=== PATIENT | male | born 1960 | race Caucasian/White ===

== ENCOUNTER 2019-09-08 14:31 | Outpatient (CLI) | payer BC, SELFPAY ==
--- NOTE | ~2019-09-08 | CT_ITS ---
EXAMINATION: CT shoulder RT wo con DATE: 09/08/2019 14:56 INDICATION: Right shoulder osteoarthritis TECHNIQUE: High resolution computed tomography (CT) of the right shoulder was performed without intra venous contrast. Additional sagittal and coronal reconstructions were performed. Automated exposure c ontrol and iterative reconstruction technique were employed. The dose-length product was 535.70 mGy-c m. COMPARISON: Radiograph dated 08/31/2019 FINDINGS: Alignment is normal. No fracture. Moderate osteoarthritis at the right shoulder with posterior predom inant nonuniform joint space narrowing. Small to moderate size marginal osteophytes are present along the posterior rim of the glenoid. There are also small marginal osteophytes about the humeral head. 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 Moderate a cromioclavicular osteoarthritis. Soft tissues are unremarkable with no asymmetric muscular atrophy of the right shoulder girdle. Visualized portions of the right lung are clear. IMPRESSION: 1. Moderate acromioclavicular and glenohumeral osteoarthritis. Reviewed, dictated and finalized at location A.
== END 2019-09-08 14:32 | disposition home or self-care (01) ==
PROVIDERS: PCP Family Medicine; Visit Provider Orthopaedic Surgery
DX: M19.011 Primary osteoarthritis, right shoulder (principal)
CPT/HCPCS: 73200

== ENCOUNTER 2019-12-27 10:06 | Outpatient (CLI) | payer BC, SELFPAY ==
--- NOTE | 2019-12-27 10:54 | ECG_ITS ---
Measurements Intervals [place] Rate: 56 P: 52 NH: 168 QRS: 44 QRSD: 92 T: 46 QT: 385 QTc: 374 Interpretive Statements SINUS BRADYCARDIA BASELINE ARTIFACT- I, II, AVR BORDERLINE ECG Electronically Signed On 12-27-2019 11:15:19 CDT by Russell Peralta D.O.
[2019-12-27 11:20] LABS: Basophils Percent Auto 0.5 % (0.2-1.2); Eosinophils Percent Auto 0.9 % (0-4.4); Hematocrit 41.1 % (42.0-52.0); Hemoglobin 14.7 g/dL (14.0-18.0); Immature Granulocyte Absolute 0.01 K/mm3 (0.00-0.031); Immature Granulocyte Percent A 0.2 % (0-0.5); Lymphocytes Absolute Auto 0.96 K/mm3 (0.9-3.2); Lymphocytes Percent Auto 22.5 % (18.3-44.2); Mean Corpuscular HGB Conc 35.8 g/dl (32-36); Mean Corpuscular Hemoglobin 32.7 pg (26-34); Mean Corpuscular Volume 91.5 fl (80-100); Mean Platelet Volume 8.6 fl (7.4-10.4); Monocytes Absolute Auto 0.3 K/mm3 (0.1-0.6); Monocytes Percent Auto 6.8 % (2.6-8.5); Neutrophils Absolute Auto 2.9 K/mm3 (1.3-6.7); Neutrophils Percent Auto 69.1 % (45.5-73.1); Platelet Count Result 189 k/mm3 (150-375); Red Blood Count 4.49 M/mm3 (4.6-6.20); Red Cell Distribution Width 12.1 % (11.5-14.5); White Blood Count 4.3 K/mm3 (4.5-10.0)
== END 2019-12-27 10:07 | disposition home or self-care (01) ==
LOC: ANHSURGERY 10:09
PROVIDERS: PCP Family Medicine; Visit Provider Orthopaedic Surgery
DX: M19.011 Primary osteoarthritis, right shoulder (principal); I10 Essential (primary) hypertension; Z01.818 Encounter for other preprocedural examination; R94.31 Abnormal electrocardiogram [ECG] [EKG]
CPT/HCPCS: 36415; 85025; 87081; 93005

== ENCOUNTER 2020-01-21 01:39 | Outpatient (CLI) | payer BC, SELFPAY ==
[2020-01-21 22:13] LABS: SARS-CoV-2 RNA PCR Negative
== END 2020-01-21 01:40 | disposition home or self-care (01) ==
LOC: ANHCOVIDDT 01:39
PROVIDERS: PCP Family Medicine; Visit Provider Orthopaedic Surgery
DX: Z01.812 Encounter for preprocedural laboratory examination (principal); Z20.828 Contact with and (suspected) exposure to other viral communicable diseases
CPT/HCPCS: 87635; C9803; U0003

== ENCOUNTER 2020-01-24 13:19 | Inpatient (IN) | payer BC, SELFPAY ==
[2019-12-27 10:31] VITALS: BP 142/72; PULSE 72; RESP 20; TEMP 36.3; O2SAT 100; BMI 25.9
--- NOTE | 2020-01-23 14:12 | WPDANESEPPF ---
Anes - Initial Pre Proc Eval Procedure: Operation Date: 01/24/20 07:30 Proposed Procedures p Right Anatomic Total Shoulder Arthroplasty Versus Right Reverse Total Shoulder Arthroplasty - Adiel Urrutia MD Date/Time: 01/23/20 14:12 Surgeon: Adiel Urrutia MD Pre Op Diagnosis: Right Shoulder OA Patient Data Age: 59 Gender: M Height: 1.88 m Weight: 91.8 kg Last Vital Signs Temp 36.3 C L 12/27/19 10:31 Pulse 72 12/27/19 10:31 Resp 20 12/27/19 10:31 BP 142/72 H 12/27/19 10:31 Pulse Ox 100 12/27/19 10:31 Allergies Allergy/AdvReac Type Severity Reaction Status Date / Time No Known Allergies Allergy Verified 01/24/20 07:01 Home Medications Medication Instructions Recorded Confirmed Type aspirin 81 mg PO HS 01/07/19 01/24/20 History omega-3 fatty acids 1,000 mg 2,000 mg PO BID cap 04/07/19 01/24/20 History capsule ramipril 10 mg capsule 10 mg PO BID #180 cap 12/07/19 01/24/20 Rx ascorbic acid (vitamin C) [Vitamin 1 g PO DAILY 12/27/19 01/24/20 History C] cholecalciferol (vitamin D3) 50 mcg PO DAILY 12/27/19 01/24/20 History docusate sodium 250 mg PO BID 12/27/19 01/24/20 History gabapentin 300 mg PO HS 12/27/19 01/24/20 History metoprolol succinate 25 mg PO HS 12/27/19 01/24/20 History psyllium seed (sugar) [Metamucil 1 tbsp PO BID 12/27/19 01/24/20 History (sugar)] rosuvastatin [Crestor] 10 mg PO HS 12/27/19 01/24/20 History ECG: : 1960MR#: [id number] Age/Sex: 59 / MAcct:[id number] Loc: ANHSURGERY ADM Date: 12/27/[address]: Adiel Urrutia MD Ordering Physician: Ottoniel Pitts MD Date of Service: 12/27/19 Procedure(s): CA 12 lead EKG Accession Number(s): [id number] cc: ~ Measurements Intervals [place] Rate: 56 P: 52 ME: 168 QRS: 44 QRSD: 92 T: 46 QT: 385 QTc: 374 Interpretive Statements SINUS BRADYCARDIA BASELINE ARTIFACT- I, II, AVR BORDERLINE ECG Electronically Signed On 12-27-2019 11:15:19 CDT by Russell Peralta D.O. Dictated By: Russell Peralta DO 12/27/19 1134 Patient hx anesthesia problems: none Family hx anesthesia problems: none PMFSH Past Medical History Medical History (Updated 01/23/20 @ 14:13 by Dony Romeo MD) Benign essential hypertension FHx: heart disease Hereditary hemochromatosis Mixed hyperlipidemia JOSE A on CPAP Osteoarthritis of right shoulder Overweight (BMI 25.0-29.9) Surgical History Surgical History History of appendectomy Hx of lumbar discectomy L5-S1 Family History Family History Sibling Family history of heart disease in male family member before age 55 Cerebrovascular accident Family history of lung cancer Family history of malignant neoplasm of breast in first degree relative Diabetes mellitus Family history of cardiovascular disease Family history of Parkinson's disease, Onset Age: 71 Mother Diabetes mellitus Family history of chronic obstructive pulmonary disease Family history of congestive heart failure Social History Social History Smoking status: Never smoker Second hand tobacco smoke exposure: No Alcohol intake: current Substance use: never Substance use type: does not use Living arrangements: with family Gender identity (if verbalized by the patient): Male Spiritual care concerns: No Anes - Eval Final PreProcedure Day of Procedure 01/23/20 14:12 Patient weight: overweight Heart: regular rate and rhythm Lungs: clear to auscultation and normal air movement Airway: Mal
[2020-01-24] VITALS (15 sets, daily range): BP systolic 101–140; BP diastolic 58–79; PULSE 66–87; RESP 12–20; TEMP 36.1–36.9; O2SAT 94–100
--- NOTE | ~2020-01-24 | XR_ITS ---
EXAMINATION: XR shoulder RT min 2V DATE: 01/24/2020 11:50 INDICATION: Status post right total shoulder arthroplasty TECHNIQUE: AP and transscapular Y views of the right shoulder were obtained. COMPARISON: None FINDINGS: Reverse right total shoulder arthroplasty which appears well seated in near-anatomic alignment. No fr acture. Moderate acromioclavicular osteoarthritis. Expected small amount of postoperative gas in the soft tissues surrounding the arthroplasty. Mild streaky atelectasis at the right costophrenic angle. IMPRESSION: Expected appearance post reverse right total shoulder arthroplasty. Reviewed, dictated and finalized at location A. DROPPER
[2020-01-24] MEDS: ACETAMINOPHEN 500 MG TABLET 1000 MG PO (06:35)
[2020-01-24] MEDS: LACTATED RINGERS 1,000 ML 30 ML IV CONT ×2 (06:45→11:36)
[2020-01-24] MEDS: KETOROLAC 15 MG/ML VIAL (*BKC) IV PUSH (06:45)
[2020-01-24] MEDS: TRANEXAMIC ACID 1,000MG/ISO100 1,000 MG/100 ML BAG 200 MG IVPB (06:49)
--- NOTE | 2020-01-24 07:19 | WPDANESPNB ---
Anes - Peripheral Nerve Block Date/Time: 01/24/20 07:19 I have discussed with the patient/family/POA the placement of a peripheral nerve block for post-operative pain management, including associated risks, benefits, complications, and side effects. Alternative methods of post-operative analgesia were detailed. Questions were solicited and answers provided to the satisfaction of the patient/family/POA. Time-Out: A pre-procedural Time-Out was completed immediately before starting the procedure and confirmed: Patient Identification, Site, Procedure, Patient Position and the Availability of Requisite Equipment. Clinical Indications: Acute post-operative pain management requested by the operative surgeon. Nerve Block Insertion Note Anes-nerve block: supraclavicular right Patient position: supine Skin prep: chlorhexidine Needle: 22 gauge, stimulating, insulated echogenic needle. Needle length: 80 mm Technique: ultrasound (in plane) Injectate: bupivacaine 0.5% with epi 5 mcg/ml (20cc) Observations: tolerated well Complications: none Procedure start time:: 725 Procedure end time:: 730
--- NOTE | 2020-01-24 07:20 | WPDHPUPDATE1 ---
History and Physical Update Update Date/Time: 01/24/20 07:20 History and Physical has been reviewed, including an updated exam of the patient. There are NO changes in the patient's condition. Risks, benefits, and alternatives have been discussed and questions answered. Patient agrees to proceed with procedure.
[2020-01-24] MEDS: ceFAZolin 2 GM/D5W 50 ML 2 GM/50 ML BAG IVPB (07:40)
[2020-01-24] MEDS: VANCOMYCIN HCL 1,000 MG VIAL 1000 MG TOPICAL (11:00)
--- NOTE | 2020-01-24 11:18 | PM.PROC ---
Procedure Note - Detailed Date of procedure: 01/24/20 Pre-op diagnosis: Right Shoulder OA Post-op diagnosis: same Procedure performed: 1. Reverse total shoulder arthroplasty. 2. Biceps tenodesis. 3. Lesser tuberosity osteotomy and repair Implants: Man lopez/ Sawyer, corey + reversed base plate, 29mm. Perform reversed glenoid sphere, size 42 Flex shoulder system reverse tray low offset at 6 o'clock. 6 mm polyethylene reversed insert. Ascend flex standard humeral stem size 3B Anesthesia: GETA and regional Surgeon: Adiel Urrutia MD Estimated blood loss (mL): 300 Drains: No Pathology: none sent Complications: None Condition: stable Disposition: PACU Findings: OPERATIVE DETAILS: The patient was given an interscalene block in the preoperative area. Preoperative antibiotics were given. The patient was transferred to the operating room and a general anesthetic was administered. The beach chair position was used at 45 degrees. All bony prominences were padded. The head was carefully stabilized [facility] the [facility] and priming tool setter. A sterile prep and drape was performed in the usual manner with ChloraPrep. A longitudinal incision was created at the anterior shoulder just lateral to the deltopectoral interval. Careful dissection was performed to expose the interval and protect the cephalic vein. The vein was retracted medially. The upper border of the pectoralis was released. Anterior circumflex vessel branches were suture ligated. The biceps was tenodesed. A lesser tuberosity osteotomy was performed. A moderate-sized bone fragment was removed with the straight and curved osteotome. 5. Ethibond sutures were passed for later repair. The inferior capsule was released, exposing the humeral head. Osteophytes were removed. Care was taken to stay on bone to protect the axillary nerve. The anatomic head cut was taken with the oscillating saw. Sounding and broaching was performed. The neck anteversion and inclination were carefully assessed. The cut protector was placed, and attention was turned to the glenoid. Retractors were placed. Releases were carried out for exposure. The subscapularis was mobilized, the inferior capsule and long head of triceps released, and the superior and middle glenohumeral ligaments released as well. Labral tissue was resected as needed. It was clear at this point that the shoulder was exceptionally tight. The posterior capsule was excised. A guide pin was placed for a standard anatomic glenoid implant but further instrumentation was not possible. it was elected to move to the reverse implant. A few extra mm of humeral head cut were taken. The anterior supraspinatus was released. Glenoid exposure was significantly facilitated at this time. The guide pin for there reverse implant was placed low and anteversion was built in approximately 10?. Reaming was accomplished to a 90% coverage. The center screw and boss were reamed. Measurement for the 35 mm screw was confirmed. The real standard base plate was screwed into position with excellent compression. The superior and inferior locking screws were placed at 30 mm. The circumferential Reamer was used to confirm no impingement for the glenoid sphere. The glenoid sphere was placed using a bone hook to expose the center post hole. The center screw was taken down the confirm appropriate compression. Attention was turned to the humerus. Trialing was performed. Reduction at the 12 o'clock position was not possible. Reduction at the 6 o'clock position with the low offset base plate was nicely tensioned and stable. The real humeral stem and tray, and insert were impacted into position. The shoulder was copiously irrigated periodically with pulsatile lavage. The shoulder was reduced and stability confirmed. Repair of the lesser tuberosity osteotomy was performed. Three drill holes were placed and suture shuttling was performed for the 5. Ethibond. A 2. Tape suture was also brought around the p
[2020-01-24] MEDS: PSYLLIUM SUGAR FREE POWDER PACKET 1 PACKET PO (17:35)
[2020-01-24] MEDS: DOCUSATE SODIUM 100 MG CAPSULE PO (17:35)
[2020-01-24] MEDS: ramipriL 5 MG CAPSULE 10 MG PO (17:36)
[2020-01-24] MEDS: MELOXICAM 7.5 MG TABLET PO (17:36)
[2020-01-24] MEDS: ROSUVASTATIN 10 MG TABLET PO (21:23)
[2020-01-24] MEDS: METOPROLOL SUCCINATE EXT REL 25 MG TABCR PO (21:23)
[2020-01-24] MEDS: ASPIRIN 81 MG ENTERIC TABLET PO (21:23)
[2020-01-24] MEDS: GABAPENTIN 300 MG CAPSULE PO (21:23)
[2020-01-24] MEDS: SENNA/DOCUSATE SODIUM TABLET 1 TAB PO (21:23)
[2020-01-24] MEDS: oxyCODONE HCL (*CRX) 5 MG TAB IR PO (22:09)
[2020-01-25 02:00] VITALS: BP 110/64; PULSE 57; RESP 16; TEMP 36.6; O2SAT 98
[2020-01-25 06:00] VITALS: BP 116/72; PULSE 61; RESP 14; TEMP 36.7; O2SAT 100
--- NOTE | 2020-01-25 09:10 | WPDANESPN ---
Anes - Prog Note Post-Op Date/Time: 01/25/20 09:10 Cardiovascular status: normal Respiratory status: normal Airway patency: baseline Mental status: baseline Post-Op hydration status: normal Vital Signs: Last Vital Signs Temp 36.7 C 01/25/20 06:00 Pulse 61 01/25/20 06:00 Resp 14 01/25/20 06:00 BP 116/72 01/25/20 06:00 Pulse Ox 100 01/25/20 06:00 Pain Score (VAS): 2 I/O: Intake & Output 01/24/20 01/25/20 01/25/20 23:59 07:59 15:59 Intake Total 740 1100 240 Balance 740 1100 240 Post-procedural complaints: none Patient Feedback: Patient satisfied with anesthetic care.
[2020-01-25] MEDS: ramipriL 5 MG CAPSULE 10 MG PO (09:17)
[2020-01-25] MEDS: PSYLLIUM SUGAR FREE POWDER PACKET 1 PACKET PO (09:17)
[2020-01-25] MEDS: MELOXICAM 7.5 MG TABLET PO (09:18)
[2020-01-25] MEDS: CHOLECALCIFEROL 1,000 UNITS TABLET 2000 UNITS PO (09:18)
[2020-01-25] MEDS: ASCORBIC ACID 500 MG TABLET 1000 MG PO (09:19)
[2020-01-25] MEDS: DOCUSATE SODIUM 100 MG CAPSULE PO (09:19)
[2020-01-25] MEDS: oxyCODONE HCL (*CRX) 5 MG TAB IR PO (09:19)
[2020-01-25 09:55] VITALS: BP 130/73; PULSE 62; RESP 16; TEMP 36.7; O2SAT 99
--- NOTE | 2020-01-25 12:51 | PC.NURSE ---
On 01/25/20, the student, Loyd Hung, provided care and completed [facility] documentation on this patient. I have reviewed the student's documentation and agree with the findings.
[2020-01-25] MEDS: oxyCODONE HCL (*CRX) 5 MG TAB IR 10 MG PO (13:01)
--- NOTE | 2020-01-25 18:18 | PM.DS ---
DS: Admitting Diagnosis Admitting Diagnosis Admitting Diagnosis: Right Shoulder OA DS: Summary Hospital Course Reason for hospitalization: Total shoulder arthroplasty. Hospital Course: Tolerated surgery well. Progressed appropriately with therapy. Status at Discharge Functional status at discharge: independent ambulation Overall status at discharge: patient is progressing back to baseline Time Spent with Patient Time attestation: Total time spent providing and/or coordinating discharge services: Exam Const: General: no acute distress Resp: Effort & Inspection: normal respiratory effort Skin: Other: Wound healing well. Mepilex dressing intact. No hematoma or drainage. Sling applied appropriately. Deltoid muscle fires. Axillary nerve sensation intact. Good hospital receiving clerk strength. No edema. radial pulse palpable. Neuro: Motor exam (neuro): 5/5 motor strength present throughout Sensory Exam: normal sensation Psych: Mental Status: mental status grossly normal Speech and movement: Normal speech and movement present Discharge Plan Discharge Attending physician on discharge: Adiel Urrutia Discharging Clinician: Adiel Urrutia Patient Disposition: Home, Self-Care Activity: may shower Diet: as tolerated Wound Care Instructions: follow printed instructions Discharge Instructions: See instruction sheet. Patient Instructions: Antibiotic Form, Joint Replacement Surgery (DC), Shoulder Arthroplasty (DC), Pain Management After Surgery (DC), Shoulder Immobilizer (DC) Stand Alone Forms: General Discharge Information Follow-up/Referrals: Adiel Urrutia MD [Physician] - Discharge Medications: New oxycodone-acetaminophen 5-325 mg tablet 1 - 2 tablet PO Q4-6H MDD 8 tablets PRN (Reason: pain) Qty: 40 RF: 0 Continued aspirin 81 mg Tablet,Delayed Release (Dr/Ec) 81 mg PO HS RF: 0 omega-3 fatty acids [Fish Oil Concentrate] 1,000 mg capsule 2,000 mg PO BID RF: 0 ascorbic acid (vitamin C) [Vitamin C] 1,000 mg Tablet 1 g PO DAILY RF: 0 docusate sodium 250 mg Capsule 250 mg PO BID RF: 0 Metamucil (sugar) Powder 1 tbsp PO BID RF: 0 cholecalciferol (vitamin D3) 50 mcg (2,000 unit) Capsule 50 mcg PO DAILY RF: 0 gabapentin 300 mg capsule 300 mg PO HS RF: 0 metoprolol succinate 25 mg tablet extended release 24 hr 25 mg PO HS RF: 0 rosuvastatin [Crestor] 20 mg tablet 10 mg PO HS RF: 0 ramipril [Altace] 10 mg capsule 10 mg PO BID Qty: 180 RF: 2 Date of admission: 01/24/20 13:19 Primary Care Provider: Don Wolff Admitting Provider: Adiel Urrutia Attending physician on admission: Adiel Urrutia
== END 2020-01-25 14:06 | disposition home or self-care (01) | DRG 483 ==
LOC: ANH2MED 13:21
PROVIDERS: Admitting Provider Orthopaedic Surgery; PCP Family Medicine; Visit Provider Orthopaedic Surgery
PROC: 0RRJ00Z Replacement of Right Shoulder Joint with Reverse Ball and Socket Synthetic Substitute, Open Approach (ICD-10-PCS; CPT 23472; principal; 2020-01-24 07:30)
DX: M19.011 Primary osteoarthritis, right shoulder (principal); I10 Essential (primary) hypertension; G47.33 Obstructive sleep apnea (adult) (pediatric); E78.2 Mixed hyperlipidemia
CPT/HCPCS: 36415; 73030; 86850; 86900; 86901; 94660; 97110; 97161; 97165; A4565; A9270; C1776; J0131; J0171; J0330; J0461; J0690; J1100; J1170; J1885; J2250; J2270; J2370; J2405; J2704; J2795; J3010; J3370; J7120

== ENCOUNTER 2020-06-27 12:41 | Emergency (ER) | payer OTHER, BC, SELFPAY ==
[2020-06-27 13:01] VITALS: BP 162/68; PULSE 82; RESP 16; TEMP 36.2; O2SAT 98
--- NOTE | 2020-06-27 13:05 | ED.SKABFB ---
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 Patient states he was at work Thursday and scratched the extensor surface of his right hand. He complains of quickly developing redness-similar to prior cellulitis; he mentions he is also had a shoulder replacement on the same, right side . No fever, streaking like last time, discharge, abscess/induration; symptoms are mild worse with activity and do not involve the palmar/flexor hand. He reports immunizations are UTD Related Data Home Medications Medication Instructions Recorded Confirmed Unknown Htn/ Cholesterol Meds 06/27/20 Allergies Allergy/AdvReac Type Severity Reaction Status Date / Time No Known Allergies Allergy Verified 06/27/20 12:59 Review of Systems Review of Systems: Narrative: The patient has been informed that they may have pre-hypertension or Hypertension based on a BP reading in the department. I recommend that the patient call the primary care provider listed on their discharge instructions or a physician of their choice this week to arrange follow up for further evaluation of possible pre-hypertension or Hypertension General/Constitutional: No weight loss,fever Eyes: N0: Redness,discharge Ears/Nose/Throat: No: Epistaxis,ear discharge Respiratory: Denies: Hemoptysis Gastrointestinal: No Vomiting, Bleeding-rectal Skin: No Lumps, REPORTS eruption Neurologic: No Focal Weakness,Sz Hematologic: Denies: Petechiae/Purpura Psychiatric: No: Suicida ideationl All Other Systems: Reviewed and Negative [facility] Past Medical History Medical History Benign essential hypertension FHx: heart disease Hereditary hemochromatosis Mixed hyperlipidemia JOSE A on CPAP Osteoarthritis of right shoulder Overweight (BMI 25.0-29.9) Surgical History Surgical History History of appendectomy Hx of lumbar discectomy L5-S1 S/p reverse total shoulder arthroplasty Family History Family History Sibling Family history of heart disease in male family member before age 55 Cerebrovascular accident Family history of lung cancer Family history of malignant neoplasm of breast in first degree relative Diabetes mellitus Family history of cardiovascular disease Family history of Parkinson's disease, Onset Age: 71 Mother Diabetes mellitus Family history of chronic obstructive pulmonary disease Family history of congestive heart failure Social History Social History Smoking status: Never smoker Second hand tobacco smoke exposure: No Alcohol intake: current Drinks per week: 1 Substance use: never Substance use type: does not use Gender identity (if verbalized by the patient): Male Spiritual care concerns: No Comments At time of signature, agree with nursing past medical, surgical, social and family history. There is no relevant family history pertinent to the presenting complaint Exam Narrative: Exam Narrative: General Appearance: Well appearing, Well nourished, No distressI, Conjunctiva clear Mouth/Throat: Normal appearing, Normal lips Supple Respiratory: Airway patent, No respiratory distress MS -hand: Normal strength (mostly intact, almost unlimited flexion/extension by pain), Tenderness (extensor, with mild decreased ROM), Scant swelling (extensor), no streaking Skin: Extensor hand mild cellulitis with sunburn appearance otherwise warm, Dry, Normal color Neurological: A&O x3, Speech clear, CN II-XII intact Psychiatric: Normal mood, Normal affect Cou
[2020-06-27] MEDS: cefTRIAXone 1 GM VIAL 0.75 GM IM (13:14)
== END 2020-06-27 13:34 | disposition home or self-care (01) ==
PROVIDERS: Emergency Provider Emergency Medicine; PCP Family Medicine
DX: L03.113 Cellulitis of right upper limb (principal); I10 Essential (primary) hypertension; E78.2 Mixed hyperlipidemia; G47.33 Obstructive sleep apnea (adult) (pediatric); M19.011 Primary osteoarthritis, right shoulder; Z96.611 Presence of right artificial shoulder joint
CPT/HCPCS: 96372; 99213; G0463; J0696

== ENCOUNTER 2020-07-24 10:34 | Emergency (ER) | payer OTHER, SELFPAY ==
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
[2020-07-24 10:36] VITALS: BP 156/90; PULSE 73; RESP 18; TEMP 36.8; O2SAT 100
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
[2020-07-24 11:30] VITALS: BP 141/91; PULSE 77; RESP 16; O2SAT 100
[2020-07-24 12:33] VITALS: BP 118/75; PULSE 78; RESP 16; O2SAT 100
== END 2020-07-24 12:34 | disposition home or self-care (01) ==
PROVIDERS: Emergency Provider Nurse Practitioner; PCP Family Medicine
DX: S00.91XA Abrasion of unspecified part of head, initial encounter (principal); S60.512A Abrasion of left hand, initial encounter; I10 Essential (primary) hypertension; E83.119 Hemochromatosis, unspecified; E78.5 Hyperlipidemia, unspecified; G47.30 Sleep apnea, unspecified; V85.5XXA Driver of special construction vehicle injured in nontraffic accident, initial encounter
CPT/HCPCS: 70450; 99284

== ENCOUNTER → 2020-08-02 14:07 | Outpatient (CLI) | payer OTHER, SELFPAY ==
--- NOTE | ~2020-08-02 | XR_ITS ---
EXAMINATION: XR shoulder LT min 2V DATE: 08/02/2020 14:51 INDICATION: Left shoulder pain and injury. TECHNIQUE: 4 views of left shoulder were obtained. COMPARISON: None. FINDINGS: There is levoscoliosis of upper thoracic spine. No fracture. There is moderate osteoarthrit is of glenohumeral joint and severe osteoarthritis of acromioclavicular joint. IMPRESSION: 1. Polyarticular osteoarthritis. Reviewed, dictated and finalized at location B.
--- NOTE | ~2020-08-02 | XR_ITS ---
EXAMINATION: XR wrist LT min 3V DATE: 08/02/2020 14:51 INDICATION: Left wrist injury and pain. TECHNIQUE: 4 views of left wrist were obtained. COMPARISON: None. FINDINGS: Bone alignment is normal. No fracture. There is mild osteoarthritis of triscaphe joint and first carpometacarpal joint. IMPRESSION: 1. Mild polyarticular osteoarthritis. Reviewed, dictated and finalized at location B.
--- NOTE | ~2020-08-02 | XR_ITS ---
EXAMINATION: XR knee RT 3V DATE: 08/02/2020 14:51 INDICATION: Right knee pain. TECHNIQUE: 3 views of right knee were obtained. COMPARISON: None. FINDINGS: Bone alignment is normal. No fracture. There is mild osteoarthritis of lateral and patellof emoral compartments. No knee joint effusion. IMPRESSION: 1. Mild right knee osteoarthritis. Reviewed, dictated and finalized at location B.
--- NOTE | ~2020-08-02 | XR_ITS ---
EXAMINATION: XR hand LT min 3V DATE: 08/02/2020 14:51 INDICATION: Left hand injury and pain. TECHNIQUE: 3 views of left hand were obtained. COMPARISON: None. FINDINGS: Bone alignment is normal. No fracture. There is mild osteoarthritis of triscaphe joint, fir st carpometacarpal joint, and some of the interphalangeal joints. There is severe osteoarthritis of f irst interphalangeal joint and second proximal and distal interphalangeal joints and moderate osteoar thritis of third through fifth distal interphalangeal joints. IMPRESSION: 1. Polyarticular osteoarthritis. Reviewed, dictated and finalized at location B.
== END ==
PROVIDERS: PCP Family Medicine; Visit Provider Physician Assistant
DX: M25.561 Pain in right knee (principal); V89.2XXA Person injured in unspecified motor-vehicle accident, traffic, initial encounter; M89.49 Other hypertrophic osteoarthropathy, multiple sites
CPT/HCPCS: 73030; 73110; 73130; 73562

== ENCOUNTER 2021-04-12 00:05 | Day surgery (SDC) | payer BC, SELFPAY ==
[2021-04-08 11:26] VITALS: BMI 26.3
--- NOTE | 2021-04-08 11:35 | PC.NURSE ---
Report to the Outpatient Waiting Room, entrance under the green pavilion located off [facility], at time 0830 on date 04/12/21. OR Time: 1030. - You will be asked a series of questions to screen for COVID 19 for your protection. - A mask is required within the hospital. - No visitors are allowed at this time. Preoperative COVID Testing Requirements: No COVID Test needed if: (proof is required; if not received patient will have Rapid Test prior to entry) - Patient has received COVID Vaccine at least 14 days prior to procedure date or - Patient has positive COVID test result within last 90 days of surgery date. COVID Test needed if above criteria is not met Patients may have clear liquids (water, carbonated beverages, clear teas, apple juice) until 3 hours prior to surgery with a maximum of 20 ounces. - No food from midnight until time of surgery Take the following medications with a SIP of water the morning of surgery: GABAPENTIN, METOPROLOL Medications to discontinue per physician: VITAMINS/SUPPLEMENTS Date to take last dose: 04/08/21 STOP ASPIRIN 04/05/[address] CONTRERAS Please no make-up, nail estonian, hairspray, perfume, deodorant, or body powder the day of surgery. No jewelry (including any body piercings) or valuables the day of surgery, leave them at home. Please take a shower or bath the night before, or the morning of, surgery with an antibacterial soap. Wear comfortable, loose fitting clothing. - Jewelry must be removed prior to entering the operating room. Rings and piercings that are not removed may be cut off. - The hospital will not accept responsibility for valuables. - Please leave all valuables, including medications, at home the day of surgery. If you are going home after surgery, a licensed driver lifter of sanitation truck must drive you home. - NO public transportation without another adult. - We recommend that an adult stay with you for 24 hours following discharge. - We also recommend that you do not drive, make important decision, drink alcoholic beverages, or take any drugs that were not prescribed by your health care provider for at least 24 hours after your discharge time. Follow any additional instructions given to you from your surgeon. Telephone instructions given to SIENA ZAMARRIPA and asked if any additional questions and then verbalized understanding. Patient advised to call surgeon office or pre surgery nurse liaison [phone] if any additional questions.
--- NOTE | 2021-04-11 12:45 | WPDANESEPPF ---
Anes - Initial Pre Proc Eval Procedure: Operation Date: 04/12/21 13:30 Proposed Procedures p Right Carpal Tunnel Release - dAiel Urrutia MD <Dony Romeo MD - Last Filed: 04/12/21 13:00> Date/Time: 04/11/21 12:45 <Dony Romeo MD - Last Filed: 04/12/21 13:00> Surgeon: Adiel Urrutia MD <Dony Romeo MD - Last Filed: 04/12/21 13:00> Pre Op Diagnosis: right carpal tunnel syndrome <Dony Romeo MD - Last Filed: 04/12/21 13:00> Patient Data Age: 60 Gender: M Height: 1.88 m Weight: 93 kg <Dony Romeo MD - Last Filed: 04/12/21 13:00> Allergies Allergy/AdvReac Type Severity Reaction Status Date / Time No Known Allergies Allergy Verified 04/12/21 10:58 <Dony Romeo MD - Last Filed: 04/12/21 13:00> Home Medications Medication Instructions Recorded Confirmed Type ramipril 10 mg capsule 10 mg PO BID #1 cap 07/02/20 04/12/21 Rx gabapentin 300 mg PO DAILY 09/17/20 04/12/21 History omega 5-hzk-yzb-fish oil [Fish Oil] 2 cap PO BID 09/17/20 04/12/21 History metoprolol succinate 25 mg 25 mg PO DAILY #90 tablet 09/25/20 04/12/21 Rx tablet,extended release 24 hr rosuvastatin 20 mg tablet 10 mg PO DAILY #45 tablet 12/27/20 04/12/21 Rx cholecalciferol (vitamin D3) 50 mcg PO DAILY ml 01/21/21 04/12/21 History aspirin [Baby Aspirin] 81 mg PO DAILY 04/08/21 04/12/21 History zinc 1 tablet PO DAILY 04/08/21 04/12/21 History <Dony Romeo MD - Last Filed: 04/12/21 13:00> Patient hx anesthesia problems: none <Slick Villeda MD - Last Filed: 04/12/21 12:12> Family hx anesthesia problems: none <Slick Villeda MD - Last Filed: 04/12/21 12:12> Results Review: All pre-operative results and documents have been reviewed as part of the pre-operative evaluation. <Dony Romeo MD - Last Filed: 04/12/21 13:00> [facility] Past Medical History Medical History: Medical History Benign essential hypertension FHx: heart disease Hereditary hemochromatosis Mixed hyperlipidemia JOSE A on CPAP Osteoarthritis of right shoulder Overweight (BMI 25.0-29.9) <Dony Romeo MD - Last Filed: 04/12/21 13:00> Surgical History Surgical History: Surgical History History of appendectomy Hx of lumbar discectomy L5-S1 S/p reverse total shoulder arthroplasty <Dony Romeo MD - Last Filed: 04/12/21 13:00> Family History Family History: Family History Sibling Family history of heart disease in male family member before age 55 Cerebrovascular accident Family history of lung cancer Family history of malignant neoplasm of breast in first degree relative Diabetes mellitus Family history of cardiovascular disease Family history of Parkinson's disease, Onset Age: 71 Mother Diabetes mellitus Family history of chronic obstructive pulmonary disease Family history of congestive heart failure <Dony Romeo MD - Last Filed: 04/12/21 13:00> Social History Social History: Social History Smoking status: Never smoker Second hand tobacco smoke exposure: No Alcohol intake: current Drinks per week: 1 Alcohol use details: 6/MONTH Substance use: never Substance use type: does not use Living arrangements: with family Gender identity (if verbalized by the patient): Male Sexual Orientation (if Verbalized by the Patient): Straight or Heterosexual Spiritual care concerns: No <Dony Romeo MD - Last Filed: 04/12/21 13:00> Anes - Eval Final PreProcedure Day of Procedure 04/11/21 12:45 <Dony Romeo MD - Last Filed: 04/12/21 13:00> Patient weight: overweight <Dony Romeo MD - Last Filed: 04/12/21 13:00> Heart: regular rate and rhythm <We
[2021-04-12] VITALS (8 sets, daily range): BP systolic 125–139; BP diastolic 71–91; PULSE 60–71; RESP 12–18; TEMP 36.1–36.4; O2SAT 95–99; BMI 26.0
--- NOTE | 2021-04-12 07:25 | WPDHPUPDATE1 ---
History and Physical Update Update Date/Time: 04/12/21 07:25 History and Physical has been reviewed, including an updated exam of the patient. There are NO changes in the patient's condition. Risks, benefits, and alternatives have been discussed and questions answered. Patient agrees to proceed with procedure.
[2021-04-12] MEDS: KETOROLAC 15 MG/ML VIAL (*BKC) IV PUSH (11:18)
[2021-04-12] MEDS: ACETAMINOPHEN 500 MG TABLET 1000 MG PO (11:18)
[2021-04-12] MEDS: LACTATED RINGERS 1,000 ML 30 ML IV CONT (11:18)
[2021-04-12] MEDS: BUPIVACAINE HCL 0.5% PF 30 ML VIAL INFILTRATE (13:37)
--- NOTE | 2021-04-12 18:33 | P.OP_ITS ---
Procedure Note - Detailed Date of Procedure 04/12/21 Pre-op Diagnosis right carpal tunnel syndrome Post-op Diagnosis same Procedure Performed Right 1. Carpal tunnel release 2. Cubital tunnel decompression Surgeon Adiel Urrutia MD [employer] Drilling Machine Operator Lilian Ibrahim PA-C Anesthesia general Description of Procedure Operative details. After sedation was administer, the hand was prepped and draped in the usual sterile fashion. The proposed incision was marked using typical anatomic landmarks. 4ML 0.5% Marcaine with epinephrine was injected along the incision line and at the distal forearm. The limb was exsanguinated and the tourniquet inflated to 250 millimeters of mercury. A longitudinal incision was taken sharply. Dissection was brought down to the transverse carpal ligament. Under direct vision the ligament was incised sharply. The proximal release was carried out with dissection scissors. The contents of the carpal canal were protected with a Vancleve elevator. The transverse carpal ligament was confirmed to be widely patent. The tourniquet was released. The skin was closed with interrupted 3-0 Prolene suture Sterile dressing was applied with a soft splint at the wrist. The patient was extubated and brought to the recovery room in stable condition. Estimated Blood Loss 1 Pathology none sent Complications No immediate complications Condition stable Disposition PACU
== END 2021-04-12 15:52 | disposition home or self-care (01) ==
PROVIDERS: PCP Family Medicine; Visit Provider Orthopaedic Surgery
PROC: (CPT 64721; principal; 2021-04-12 13:30)
DX: G56.01 Carpal tunnel syndrome, right upper limb (principal); G56.21 Lesion of ulnar nerve, right upper limb; Z79.82 Long term (current) use of aspirin; E78.2 Mixed hyperlipidemia; G47.33 Obstructive sleep apnea (adult) (pediatric); M19.011 Primary osteoarthritis, right shoulder; E83.110 Hereditary hemochromatosis; I11.9 Hypertensive heart disease without heart failure
CPT/HCPCS: 64721; A9270; J1100; J1885; J2250; J2405; J2704; J3010; J7120

== ENCOUNTER 2022-03-31 10:14 | Outpatient (CLI) | payer BC, SELFPAY ==
[2022-03-31 13:15] LABS: Alanine Aminotransferase 33 U/L (6-50); Albumin Level 4.4 g/dL (3.5-5.1); Alkaline Phosphatase 63 U/L (38-126); Anion Gap 6 mmol/L (8-16); Aspartate Amino Transferase 28 U/L (17-59); Blood Urea Nitrogen 11 mg/dL (9-20); Calcium 8.7 mg/dL (8.4-10.2); Carbon Dioxide 31 mmol/L (22-30); Chloride 102 mmol/L (98-107); Estimated Glomerular Filt Rate > 60; Glucose 97 mg/dL (65-110); Potassium 3.8 mmol/L (3.4-5.0); Sodium 139 mmol/L (137-145)
== END 2022-03-31 10:15 | disposition home or self-care (01) ==
PROVIDERS: PCP Family Medicine; Visit Provider Family Medicine
DX: I10 Essential (primary) hypertension (principal)
CPT/HCPCS: 36415; 80053

== ENCOUNTER 2022-09-26 10:53 | Outpatient (CLI) | payer BC, SELFPAY ==
[2022-09-26 11:08] LABS: Hematocrit 40.2 % (42.0-52.0); Hemoglobin 13.8 g/dL (14.0-18.0); Mean Corpuscular HGB Conc 34.3 g/dl (32-36); Mean Corpuscular Hemoglobin 31.9 pg (26-34); Mean Corpuscular Volume 92.8 fl (80-100); Mean Platelet Volume 8.5 fl (7.4-10.4); Platelet Count Result 204 k/mm3 (150-375); Red Blood Count 4.33 M/mm3 (4.6-6.20); Red Cell Distribution Width 11.9 % (11.5-14.5); White Blood Count 4.5 K/mm3 (4.5-10.0)
[2022-09-26 12:27] LABS: Alanine Aminotransferase 30 U/L (6-50); Albumin Level 4.5 g/dL (3.5-5.1); Alkaline Phosphatase 68 U/L (38-126); Anion Gap 7 mmol/L (8-16); Aspartate Amino Transferase 25 U/L (17-59); Bilirubin,Total 2.1 mg/dL (0.2-1.3); Blood Urea Nitrogen 10 mg/dL (9-20); Carbon Dioxide 29 mmol/L (22-30); Chloride 102 mmol/L (98-107); Cholesterol 112 mg/dL (0-200); Estimated Glomerular Filt Rate > 60; Glucose 91 mg/dL (65-110); HDL Direct 33 mg/dL; Potassium 4.1 mmol/L (3.4-5.0); Sodium 138 mmol/L (137-145); Triglycerides 61 mg/dL (<150)
[2022-09-26 12:37] LABS: Appearance Urine Clear (Clear); Bilirubin Urine Negative (Negative); Blood Urine Negative (Negative); Color Urine Yellow (Yellow); Glucose Urine UA Negative (Negative); Ketones Urine Negative (Negative); Leukocyte Esterase Ur Negative LEU/UL (NEGATIVE); Nitrate Urine Negative (Negative); Protein Urine Negative (Negative); Specific Grav Ur 1.005 (1.001-1.035); Urobilinogen Urine 0.2 mg/dL (<2.0); pH Urine 7.5 (5.0-9.0)
[2022-09-26 12:40] LABS: LDL Cholesterol Direct 54 mg/dL
[2022-09-26 12:41] LABS: Add Urine Microscopic? NO
[2022-09-26 13:00] LABS: Prostate Specific Antigen 1.3 ng/mL (< OR = 4.0)
== END 2022-09-26 10:54 | disposition home or self-care (01) ==
LOC: ANHLAB 10:56
PROVIDERS: PCP Family Medicine; Visit Provider Family Medicine
DX: Z00.00 Encounter for general adult medical examination without abnormal findings (principal); E78.2 Mixed hyperlipidemia; R35.1 Nocturia; I10 Essential (primary) hypertension
CPT/HCPCS: 36415; 80053; 80061; 81003; 84153; 84443; 85027

== ENCOUNTER 2023-04-02 10:44 | Outpatient (CLI) | payer BC, SELFPAY ==
[2023-04-02 14:02] LABS: Alanine Aminotransferase 33 U/L (6-50); Albumin Level 4.1 g/dL (3.5-5.1); Alkaline Phosphatase 76 U/L (38-126); Anion Gap 7 mmol/L (8-16); Aspartate Amino Transferase 27 U/L (17-59); Bilirubin,Total 1.5 mg/dL (0.2-1.3); Blood Urea Nitrogen 13 mg/dL (9-20); Calcium 8.7 mg/dL (8.4-10.2); Carbon Dioxide 32 mmol/L (22-30); Chloride 97 mmol/L (98-107); Estimated Glomerular Filt Rate > 60; Glucose 80 mg/dL (65-110); Potassium 3.5 mmol/L (3.4-5.0); Sodium 136 mmol/L (137-145)
== END 2023-04-02 10:45 | disposition home or self-care (01) ==
PROVIDERS: PCP Family Medicine; Visit Provider Internal Medicine Hematology & Oncology
DX: I10 Essential (primary) hypertension (principal)
CPT/HCPCS: 36415; 80053

== ENCOUNTER 2023-10-01 10:49 | Outpatient (CLI) | payer BC, SELFPAY ==
[2023-10-01 11:12] LABS: Hemoglobin 14.1 g/dL (14.0-18.0); Mean Corpuscular HGB Conc 35.3 g/dl (32-36); Mean Corpuscular Hemoglobin 32.5 pg (26-34); Mean Corpuscular Volume 92.2 fl (80-100); Mean Platelet Volume 8.4 fl (7.4-10.4); Platelet Count Result 230 k/mm3 (150-375); Red Blood Count 4.34 M/mm3 (4.6-6.20); Red Cell Distribution Width 12.1 % (11.5-14.5); White Blood Count 5.1 K/mm3 (4.5-10.0)
[2023-10-01 13:48] LABS: Appearance Urine Clear (Clear); Bilirubin Urine Negative (Negative); Blood Urine Negative (Negative); Color Urine Yellow (Yellow); Glucose Urine UA Negative (Negative); Ketones Urine Negative (Negative); Leukocyte Esterase Ur Negative LEU/UL (Negative); Nitrate Urine Negative (Negative); Protein Urine Negative (Negative); Specific Grav Ur 1.009 (1.001-1.035); Urobilinogen Urine 0.2 mg/dL (<2.0)
[2023-10-01 13:52] LABS: Add Urine Microscopic? NO; Alanine Aminotransferase 34 U/L (6-50); Albumin Level 4.6 g/dL (3.5-5.1); Alkaline Phosphatase 61 U/L (38-126); Anion Gap 9 mmol/L (4-12); Aspartate Amino Transferase 31 U/L (17-59); Bilirubin,Total 2.3 mg/dL (0.2-1.3); Blood Urea Nitrogen 13 mg/dL (9-20); Calcium 9.2 mg/dL (8.4-10.2); Carbon Dioxide 30 mmol/L (22-30); Chloride 96 mmol/L (98-107); Cholesterol 117 mg/dL (0-200); Estimated Glomerular Filt Rate > 60; Glucose 90 mg/dL (65-110); HDL Direct 39 mg/dL; Potassium 3.4 mmol/L (3.4-5.0); Sodium 135 mmol/L (137-145); Triglycerides 72 mg/dL (<150)
[2023-10-01 14:02] LABS: LDL Cholesterol Direct 70 mg/dL
[2023-10-01 14:24] LABS: Prostate Specific Antigen 1.1 ng/mL (< OR = 4.0)
== END 2023-10-01 10:50 | disposition home or self-care (01) ==
LOC: ANHLAB 10:51
PROVIDERS: PCP Family Medicine; Visit Provider Family Medicine
DX: Z00.00 Encounter for general adult medical examination without abnormal findings (principal); E78.2 Mixed hyperlipidemia; I10 Essential (primary) hypertension; R35.1 Nocturia
CPT/HCPCS: 36415; 80053; 80061; 81003; 84153; 84443; 85027

== ENCOUNTER 2024-05-04 13:49 | Outpatient (CLI) | payer BC, SELFPAY ==
--- OUTSIDE RECORDS SUMMARY | 2024-05-04 13:52 | XMS_ITS | Clinical Summary ---
Author Organization [facility] Address [address] [place] [phone] Phone Care Team Providers Care Benefits Processor Name Role Phone Don Wolff MD Primary Care Provider [phone] Allergies No known active allergies Medications gabapentin (NEURONTIN) 300 mg capsule Take 300 mg by mouth daily. Active ramipril (ALTACE) 10 mg capsule Take 10 mg by mouth 2 times daily. Active metoprolol succinate (TOPROL XL) 25 mg Extended Release 24 hour tablet Take 25 mg by mouth daily. Active rosuvastatin (CRESTOR) 20 mg tabletIndication s:PT ONLY TAKING HALF A PILL DAILY Take 20 mg by mouth daily at bedtime. Active aspirin (ECOTRIN EC) 81 mg Tablet, Delayed Release (E.C.) Take 81 mg by mouth daily. Active omega-3 acid ethyl esters (OMACOR,LOVAZA) 1 gram Capsule Take 4 Grams by mouth daily. Active psyllium (METAMUCIL) Packet Take 1 Packet by mouth daily. Active hydroCHLOROthiaz jim 12.5 mg tablet Take 12.5 mg by mouth daily. Active Active Problems Problem Noted Date Diagnosed Date Hereditary hemochromatosis 12/07/2018 Family History Medical History Relation Name Comments Cancer Brother 1 Heart Disease Brother 2 Diabetes Mother Heart Disease Mother Diabetes Sister 1 Diabetes Sister 2 Relation Name Status Comments Brother 1 Brother 2 Alive Father Mother Sister 1 Sister 2 Alive Social History Tobacco Use Types Packs/Day Years Used Date Smoking Tobacco: Never Smokeless Tobacco: Never Tobacco Cessation:Counseling Given: Not Answered Alcohol Use Standard Drinks/Week Comments Yes 0 (1 standard drink = 0.6 oz pur e alcohol) Sex and Gender Information Value Date Recorded Sex Assigned at Not on file Legal Sex Male 12:14 PM ORAL AND MAXILLOFACIAL SURGERY Gender Identity Not on file Sexual Orientation Not on file Last Filed Vital Signs Vital Sign Reading Time Taken Comments Blood Pressure 135/79 05/11/2023 10:50 AM ORAL AND MAXILLOFACIAL SURGERY Pulse 64 05/11/2023 10:50 AM ORAL AND MAXILLOFACIAL SURGERY Temperature 36 C (96.8 F) 05/11/2023 10:50 AM ORAL AND MAXILLOFACIAL SURGERY Respiratory Rate 14 05/11/2023 10:50 AM ORAL AND MAXILLOFACIAL SURGERY Oxygen Saturation 98% 05/11/2023 10:50 AM ORAL AND MAXILLOFACIAL SURGERY Inhaled Oxygen Concentration - - Weight 91.6 kg (202 lb) 05/11/2023 10:50 AM ORAL AND MAXILLOFACIAL SURGERY Height 188 cm (6' 2 ) 09/09/2021 3:34 PM CDT Body Mass Index 25.94 09/09/2021 3:34 PM CDT Plan of Treatment Upcoming Encounters Date Type Department Care Team (Late st Contact Info) Description 05/09/2024 11:00 AM ORAL AND MAXILLOFACIAL SURGERY Office Visit [facility] Oncology and Hematology [facility] [address] [place] [address] [address] [place] [address] Dwain Hunt MD [address] [facility] [address] [place] [address] Health Maintenance Due Date Last Done Comments Pre-Diabetes and Diabetes Screening 1960 DTAP/TDAP/TD VACCINES (1 - Tdap) 1977 COLORECTAL SCREENING 06/10/2003 Colorectal Cancer Screening 06/10/2003 FIT-DNA Q 3 years 06/10/2003 FIT/FOBT Q 1 year 06/10/2003 Flex Sig/CT Colonography Q 5 years 06/10/2003 PNEUMOCOCCAL VACCINE 65+ YEA RS (1 of 1 - PCV) 2008 ZOSTER VACCINE (1 of 2) 2008 INFLUENZA VACCINE (#1) 2023 02/15/2021, 2018 Preventative Visit- Commercial 03/23/2024 RSV VACCINE (60+ or ) (1 - 1-dose 75+ series) 2033 Insurance BCBS BLUE ACCESS/TRUE BLUE PPO * Guarantor: [id number] Account Type Relation to Patient Date of Phone Billing Address Workers Comp Employer [facility] [employer] [facility] [address] [address] Care Teams Benefits Processor Relationship Specialty Start Date End Date Don Wolff MD [address] [facility] [address] [place] [phone] PCP - General Family Practice 09/01/19
--- OUTSIDE RECORDS SUMMARY | 2024-05-04 13:52 | XMS_ITS | Clinical Summary ---
Author Organization [facility] Care Team Providers Care Cart Driver Name Role Phone Unavailable Primary Care Provider Unavailabl e Social History Tobacco Use Types Packs/Day Years Used Date Smoking Tobacco: Never Assessed Sex and Gender Information Value Date Recorded Sex Assigned at Not on file Legal Sex Male 7:28 PM CDT Gender Identity Not on file Sexual Orientation Not on file Plan of Treatment Health Maintenance Due Date Last Done Comments Hepatitis C Virus (HCV) Screening 1960 Colonoscopy 06/10/2003 Colorectal Cancer Screening 06/10/2003 Cologuard 2008 Immunochemical Fecal Occult Blood 2008 PSA Discussion 2013 Influenza Immunization (#1) 11/22/202312/22, 01/17/2022, 02/15/2021, Additional history exists SARS-COV-2 Immunization ( season) 2023 01/24/2023, 01/04/2022, 01/31/2021, Additional history exists DTaP/Tdap/Td Immunization Discontinued 08/07/2014 TdaP Immunization Completed 08/07/2014 Respiratory Syncytial Virus (RSV) Immunization (Adult) Completed 01/31/2023 Pneumococcal Immunization (50+ years) Completed 02/07/2023, 01/31/2022, 03/14/2017 Pneumococcal Immunization Combined Discontinued 02/07/2023, 01/31/2022, 03/14/2017 Zoster Immunization Completed 04/18/2023, 02/13/2023, 08/01/2017, Additional history exists Hepatitis B Immunization Aged Out No longer eligible based on patient's age to complete this topic Meningococcal Immunization (ACWY) Aged Out No longer eligible based on patient's age to complete this topic Rotavirus Immunization Aged Out No lo nger eligible based on patient's age to complete this topic
[2024-05-04 13:59] LABS: Basophils Percent Auto 0.5 % (0.2-1.2); Eosinophils Percent Auto 0.7 % (0-4.4); Hematocrit 38.8 % (42.0-52.0); Hemoglobin 13.9 g/dL (14.0-18.0); Immature Granulocyte Absolute 0.02 K/mm3 (0.00-0.031); Immature Granulocyte Percent A 0.4 % (0-0.5); Lymphocytes Absolute Auto 1.16 K/mm3 (0.9-3.2); Lymphocytes Percent Auto 20.6 % (18.3-44.2); Mean Corpuscular HGB Conc 35.8 g/dl (32-36); Mean Corpuscular Hemoglobin 32.9 pg (26-34); Mean Corpuscular Volume 91.7 fl (80-100); Mean Platelet Volume 8.1 fl (7.4-10.4); Monocytes Absolute Auto 0.5 K/mm3 (0.1-0.6); Monocytes Percent Auto 9.6 % (2.6-8.5); Neutrophils Absolute Auto 3.8 K/mm3 (1.3-6.7); Neutrophils Percent Auto 68.2 % (45.5-73.1); Platelet Count Result 212 k/mm3 (150-375); Red Blood Count 4.23 M/mm3 (4.6-6.20); Red Cell Distribution Width 12.3 % (11.5-14.5); White Blood Count 5.6 K/mm3 (4.5-10.0)
[2024-05-04 16:20] LABS: Alanine Aminotransferase 30 U/L (6-50); Albumin Level 4.3 g/dL (3.5-5.1); Alkaline Phosphatase 61 U/L (38-126); Anion Gap 8 mmol/L (4-12); Aspartate Amino Transferase 42 U/L (17-59); Bilirubin,Total 2.1 mg/dL (0.2-1.3); Blood Urea Nitrogen 12 mg/dL (9-20); Calcium 9.2 mg/dL (8.4-10.2); Carbon Dioxide 32 mmol/L (22-30); Chloride 99 mmol/L (98-107); Estimated Glomerular Filt Rate > 60; Glucose 96 mg/dL (65-110); Potassium 3.4 mmol/L (3.4-5.0); Sodium 139 mmol/L (137-145)
[2024-05-04 16:31] LABS: Iron 151 ug/dL (49-181)
[2024-05-04 16:43] LABS: Percent Iron Saturation 47 % (20-50)
== END 2024-05-04 13:50 | disposition home or self-care (01) ==
LOC: ANHLAB 13:50
PROVIDERS: PCP Family Medicine; Visit Provider Internal Medicine Hematology & Oncology
DX: E83.110 Hereditary hemochromatosis (principal)
CPT/HCPCS: 36415; 80053; 82728; 83540; 83550; 85025

== ENCOUNTER 2024-10-20 10:55 | Outpatient (CLI) | payer BC, SELFPAY ==
--- OUTSIDE RECORDS SUMMARY | 2024-10-20 11:05 | XMS_ITS | Clinical Summary ---
Author Organization [facility] Address [address] [place] [phone] Phone Care Team Providers Care Packaging Materials Inspector Name Role Phone Don Wolff MD Primary Care Provider [phone] Allergies No known active allergies Medications gabapentin [...] on file Legal Sex Male 12:14 PM RECORDS MANAGER Gender Identity Not on file Sexual Orientation Not on file Last Filed Vital Signs Vital Sign Reading Time Taken Comments Blood Pressure 121/73 05/09/2024 10:44 AM RECORDS MANAGER Pulse 65 05/09/2024 10:44 AM RECORDS MANAGER Temperature 35.8 C (96.5 F) 05/09/2024 10:44 AM RECORDS MANAGER Respiratory Rate 15 05/09/2024 10:44 AM RECORDS MANAGER Oxygen Saturation 97% 05/09/2024 10:44 AM RECORDS MANAGER Inhaled Oxygen Concentration - - Weight 93.9 kg (207 lb) 05/09/2024 10:44 AM RECORDS MANAGER Height 188 cm (6' 2) 09/09/2021 3:34 PM CDT Body Mass Index 26.58 09/09/2021 3:34 PM CDT Plan of Treatment Upcoming Encounters Date Type Department Care Team (Late st Contact Info) Description 11/07/2024 11:00 AM CDT Office Visit [facility] Oncology and Hematology - [place] [address] [place] [address] [facility] [address] [place] [address] Dwain Hunt MD [address] [facility] [address] [place] [address] Health Maintenance Due Date Last Done Comments Pre-Diabetes and Diabetes Screening 1960 DTAP/TDAP/TD VACCINES (1 - Tdap) 1977 COLORECTAL SCREENING 06/10/2003 Colorectal Cancer Screening 06/10/2003 FIT-DNA Q 3 years 06/10/2003 FIT/FOBT Q 1 year 06/10/2003 Flex Sig/CT Colonography Q 5 years 06/10/2003 PNEUMOCOCCAL VACCINE 50+ YEA RS (1 of 1 - PCV) 2008 ZOSTER VACCINE (1 of 2) 2008 INFLUENZA VACCINE (#1) 2024 02/15/2021, 2018 RSV VACCINE (60+ or ) (1 - 1-dose 75+ series) 2033 Insurance BCBS BLUE ACCESS/TRUE BLUE PPO Care Teams Packaging Materials Inspector Relationship Specialty Start Date End Date Don Wolff MD [address] [facility] [address] [place] [phone] PCP - General Family Practice 09/01/19
--- OUTSIDE RECORDS SUMMARY | 2024-10-20 11:05 | XMS_ITS | Clinical Summary ---
Author Organization [facility] Care Team Providers Care Pharmacy Picking Tech Name Role Phone Unavailable Primary Care Provider [...] Comments Hepatitis C Virus (HCV) Screening 1960 Cologuard 06/10/2003 Colonoscopy 06/10/2003 Colorectal Cancer Screening 06/10/2003 Immunochemical Fecal Occult Blood 06/10/2003 PSA Discussion 2013 SARS-COV-2 Immunization ( season) 2023 01/24/2023, 01/04/2022, 01/31/2021, Additional history exists Influenza Immunization (#1) 11/21/202412/22, 01/17/2022, 02/15/2021, Additional history exists DTaP/Tdap/Td Immunization Discontinued 08/07/2014 TdaP Immunization Completed 08/07/2014 Respiratory Syncytial Virus (RSV) Immunization (Adult) Completed 01/31/2023 Pneumococcal Immunization (50+ years) Completed 02/07/2023, 01/31/2022, 03/14/2017 Pneumococcal Immunization Combined Discontinued 02/07/2023, 01/31/2022, 03/14/2017 Zoster Immunization Completed 04/18/2023, 02/13/2023, 08/01/2017, Additional history exists Hepatitis B Immunization Aged Out No longer eligible based on patient's age to complete this topic Human Papillomavirus (HPV) Immunization Aged Out No longer eligible based on patient's age to complete this topic Meningococcal Immunization (ACWY) Aged Out No longer eligible based on patient's age to complete this topic Rotavirus Immunization Aged Out No lo nger eligible based on patient's age to complete this topic
[2024-10-20 11:14] LABS: Hematocrit 40.2 % (42.0-52.0); Hemoglobin 14.1 g/dL (14.0-18.0); Mean Corpuscular HGB Conc 35.1 g/dl (32-36); Mean Corpuscular Hemoglobin 32.3 pg (26-34); Mean Corpuscular Volume 92.0 fl (80-100); Platelet Count Result 206 k/mm3 (150-375); Red Blood Count 4.37 M/mm3 (4.6-6.20); White Blood Count 4.2 K/mm3 (4.5-10.0)
[2024-10-20 12:01] LABS: Add Urine Microscopic? NO; Appearance Urine Clear (Clear); Glucose Urine UA Negative (Negative); Leukocyte Esterase Ur Negative LEU/UL (Negative); Nitrate Urine Negative (Negative); Specific Grav Ur 1.010 (1.001-1.035)
[2024-10-20 12:06] LABS: Alanine Aminotransferase 34 U/L (6-50); Albumin Level 4.5 g/dL (3.5-5.1); Alkaline Phosphatase 66 U/L (38-126); Anion Gap 8 mmol/L (4-12); Aspartate Amino Transferase 35 U/L (17-59); Bilirubin,Total 2.3 mg/dL (0.2-1.3); Blood Urea Nitrogen 10 mg/dL (9-20); Calcium 9.3 mg/dL (8.4-10.2); Carbon Dioxide 31 mmol/L (22-30); Chloride 98 mmol/L (98-107); Cholesterol 112 mg/dL (0-200); Estimated Glomerular Filt Rate > 60; Glucose 97 mg/dL (65-110); HDL Direct 41 mg/dL; Potassium 3.8 mmol/L (3.4-5.0); Sodium 137 mmol/L (137-145); Total Protein 7.5 g/dL (6.3-8.2); Triglycerides 64 mg/dL (<150)
[2024-10-20 12:44] LABS: Prostate Specific Antigen 1.4 ng/mL (< OR = 4.0); Thyroid Stimulating Hormone 2.510 uIU/mL (0.465-4.680)
[2024-10-20 13:51] LABS: Hemoglobin A1C 5.3 % (<5.7)
== END 2024-10-20 10:56 | disposition home or self-care (01) ==
LOC: ANHLAB 10:56
PROVIDERS: PCP Family Medicine; Visit Provider Family Medicine
DX: Z00.00 Encounter for general adult medical examination without abnormal findings (principal); I10 Essential (primary) hypertension; E78.2 Mixed hyperlipidemia; R73.01 Impaired fasting glucose; R35.1 Nocturia
CPT/HCPCS: 36415; 80053; 80061; 81003; 83036; 84153; 84443; 85027

== ENCOUNTER 2024-11-03 11:05 | Outpatient (CLI) | payer BC, SELFPAY ==
[2024-11-03 11:22] LABS: Hematocrit 38.1 % (42.0-52.0); Hemoglobin 13.3 g/dL (14.0-18.0); Immature Granulocyte Percent A 0.2 % (0-0.5); Lymphocytes Absolute Auto 1.00 K/mm3 (0.9-3.2); Mean Corpuscular HGB Conc 34.9 g/dl (32-36); Mean Corpuscular Hemoglobin 32.0 pg (26-34); Mean Corpuscular Volume 91.6 fl (80-100); Nucleated Red Blood Cells Absolute Auto 0.000 K/mm3 (0.0-0.012); Nucleated Red Blood Cells Perc 0.0 % (0.0-0.2); Platelet Count Result 200 k/mm3 (150-375); Red Blood Count 4.16 M/mm3 (4.6-6.20); White Blood Count 4.2 K/mm3 (4.5-10.0)
--- OUTSIDE RECORDS SUMMARY | 2024-11-03 11:23 | XMS_ITS | Clinical Summary ---
Author Organization [facility] Address [address] [place] [phone] Phone Care Team Providers Care Clinical Care Leader Name Role Phone Don Wolff MD Primary Care Provider [phone] Allergies No known active allergies Medications gabapentin [...] on file Legal Sex Male 12:14 PM CONSTRUCTION EQUIPMENT OVERHAULER Gender Identity Not on file Sexual Orientation Not on file Last Filed Vital Signs Vital Sign Reading Time Taken Comments Blood Pressure 121/73 05/09/2024 10:44 AM CONSTRUCTION EQUIPMENT OVERHAULER Pulse 65 05/09/2024 10:44 AM CONSTRUCTION EQUIPMENT OVERHAULER Temperature 35.8 C (96.5 F) 05/09/2024 10:44 AM CONSTRUCTION EQUIPMENT OVERHAULER Respiratory Rate 15 05/09/2024 10:44 AM CONSTRUCTION EQUIPMENT OVERHAULER Oxygen Saturation 97% 05/09/2024 10:44 AM CONSTRUCTION EQUIPMENT OVERHAULER Inhaled Oxygen Concentration - - Weight 93.9 kg (207 lb) 05/09/2024 10:44 AM CONSTRUCTION EQUIPMENT OVERHAULER Height 188 cm (6' 2) 09/09/2021 3:34 PM CDT Body Mass Index 26.58 09/09/2021 3:34 PM CDT Plan of Treatment Upcoming Encounters Date Type Department Care Team (Late st Contact Info) Description 11/07/2024 11:00 AM CDT Office Visit [facility] Oncology and Hematology - [place] [address] [place] [address] [facility] [address] [place] [address] Dwain Hunt MD [address] [facility] [address] [place] [address] Health Maintenance Due Date Last Done Comments Pre-Diabetes and Diabetes Screening 1960 DTAP/TDAP/TD VACCINES (1 - Tdap) 1977 COLORECTAL SCREENING 06/10/2003 Colorectal Cancer Screening 06/10/2003 FIT-DNA Q 3 years 06/10/2003 FIT/FOBT Q 1 year 06/10/2003 Flex Sig/CT Colonography Q 5 years 06/10/2003 PNEUMOCOCCAL VACCINE 50+ YEA RS (1 of 1 - PCV) 2008 ZOSTER VACCINE (1 of 2) 2008 Preventative Visit- Commercial 03/23/2024 INFLUENZA VACCINE (#1) 2024 02/15/2021, 2018 RSV VACCINE (60+ or ) (1 - 1-dose 75+ series) 2033 Insurance * [facility]: [id number] Account Type Relation to Patient Date of Phone Billing Address Workers Comp Employer [facility] [employer] [facility] [address] [address] Care Teams Clinical Care Leader Relationship Specialty Start Date End Date Don Wolff MD [address] [facility] [address] [place] [phone] PCP - General Family Practice 09/01/19
--- OUTSIDE RECORDS SUMMARY | 2024-11-03 11:23 | XMS_ITS | Clinical Summary ---
Author Organization [facility] Care Team Providers Care Rail Car Mechanic Name Role Phone Unavailable Primary Care Provider [...]
[2024-11-03 12:39] LABS: Alanine Aminotransferase 38 U/L (6-50); Albumin Level 4.6 g/dL (3.5-5.1); Alkaline Phosphatase 65 U/L (38-126); Anion Gap 7 mmol/L (4-12); Aspartate Amino Transferase 43 U/L (17-59); Bilirubin,Total 2.5 mg/dL (0.2-1.3); Blood Urea Nitrogen 15 mg/dL (9-20); Calcium 9.4 mg/dL (8.4-10.2); Carbon Dioxide 30 mmol/L (22-30); Chloride 95 mmol/L (98-107); Estimated Glomerular Filt Rate > 60; Glucose 95 mg/dL (65-110); Potassium 3.9 mmol/L (3.4-5.0); Sodium 132 mmol/L (137-145); Total Protein 7.4 g/dL (6.3-8.2)
[2024-11-03 13:24] LABS: Iron 147 ug/dL (49-181)
[2024-11-03 13:53] LABS: Percent Iron Saturation 47 % (20-50)
[2024-11-03 14:11] LABS: Ferritin 173.00 ng/mL (11.1-264)
== END 2024-11-03 11:06 | disposition home or self-care (01) ==
LOC: ANHLAB 11:06
PROVIDERS: PCP Family Medicine; Visit Provider Internal Medicine Hematology & Oncology
DX: E83.110 Hereditary hemochromatosis (principal)
CPT/HCPCS: 36415; 80053; 82728; 83540; 83550; 85025